=== PATIENT | female | born 1945 | race Caucasian/White ===

== ENCOUNTER → 2017-07-25 | Outpatient (CLI) | payer MEDICARE, BC ==
--- NOTE | 2017-07-25 11:44 | MM ---
Reason for exam: additional evaluation requested from prior study. Last mammogram was performed 1 year and 3 months ago. History: Patient is postmenopausal. Benign core biopsy of the right breast, 1999. Took hormonal contraceptives for 9 months beginning at age 21. Took estrogen for 1 year beginning at age 51. Physical Findings: Nurse did not find any significant physical abnormalities on exam. MG 3D Diag Mammo W/Cad YOSEF Bilateral CC and MLO view(s) were taken. Prior study comparison: April 20, 2016, bilateral MG 3d screening mammo w/cad. April 14, 2015, bilateral MG 3d diag mammo w/cad YOSEF. The breast tissue is heterogeneously dense. This may lower the sensitivity of mammography. There is chronic nodularity in the right lateral breast. No significant new findings when compared with previous films. These results were verbally communicated with the patient and result sheet given to the patient on 07/25/17. ASSESSMENT: Negative, BI-RAD 1 RECOMMENDATION: Routine screening mammogram of both breasts in 1 year.
== END | disposition home or self-care (01) ==
LOC: RADMAMWWP 10:29
PROVIDERS: ATTEND Family Medicine
DX: R92.8 Other abnormal and inconclusive findings on diagnostic imaging of breast (principal)
CPT/HCPCS: 77066; G0279

== ENCOUNTER → 2017-11-20 | Outpatient (CLI) | payer MEDICARE, BC ==
--- NOTE | 2017-11-21 19:44 | EEG ---
ELECTROENCEPHALOGRAM REPORT DATE OF EE11/20/2017 This is an outpatient EEG. ELECTROENCEPHALOGRAPHIC EXAMINATION REPORT: INDICATION FOR EXAMINATION: This patient is a 71-year-old female being evaluated for 2 episodes of falling without loss of consciousness. Patient has drop attacks and falls down without seizure activity AGE: [age]. EEG FINDINGS: A routine 21-channel awake digital EEG recording was accomplished utilizing the 10-20 international system with bipolar and referential montages. The background activity in the most alert resting state consists of a low to medium amplitude, fairly well developed well sustained 7-8 Hz activity over the posterior head regions. This posterior rhythm attenuates to eye opening. There is a small amount of low amplitude 18-20 Hz beta activity seen maximally over the anterior head regions. Muscle and movement artifact was observed on a few occasions during the tracing. Hyperventilation was not performed. Photic stimulation at flash frequencies of 2-30 Hz produced a good symmetrical occipital driving response. No epileptiform discharges were seen. IMPRESSION: This EEG is within normal limits for the patient's age. The EEG failed to reveal any focal, lateralized, or epileptiform abnormalities. Clinical correlation is recommended. MMODL / IJN: [id number] /
== END | disposition home or self-care (01) ==
LOC: NEUROMAIN 12:54
PROVIDERS: ATTEND Family Medicine
DX: R55 Syncope and collapse (principal)
CPT/HCPCS: 95816

== ENCOUNTER → 2018-09-24 | Outpatient (CLI) | payer MEDICARE, BC ==
--- NOTE | 2018-09-25 09:43 | MM ---
Reason for exam: screening (asymptomatic). Last mammogram was performed 1 year and 2 months ago. History: Patient is postmenopausal. Benign core biopsy of the right breast, 1999. Took hormonal contraceptives for 9 months beginning at age 21. Took estrogen for 1 year beginning at age 51. Physical Findings: A clinical breast exam by your physician is recommended on an annual basis and results should be correlated with mammographic findings. MG 3D Screening Mammo W/Cad Bilateral CC and MLO view(s) were taken. Prior study comparison: July 25, 2017, bilateral MG 3d diag mammo w/cad YOSEF. April 20, 2016, bilateral MG 3d screening mammo w/cad. The breast tissue is heterogeneously dense. This may lower the sensitivity of mammography. Finding: There are typically benign vascular, dystrophic, round calcifications in both breasts. Previous mammotome biopsy in the right breast. There is no discrete abnormality. ASSESSMENT: Benign, BI-RAD 2 RECOMMENDATION: Routine screening mammogram of both breasts in 1 year.
== END | disposition home or self-care (01) ==
LOC: RADMAMWWP 16:26
PROVIDERS: ATTEND Family Medicine
DX: Z12.31 Encounter for screening mammogram for malignant neoplasm of breast (principal)
CPT/HCPCS: 77063; 77067

== ENCOUNTER → 2018-10-14 | Outpatient (CLI) | payer MEDICARE, BC ==
--- NOTE | 2018-10-14 12:42 | US ---
EXAMINATION TYPE: US venous doppler duplex LE LT DATE OF EXAM: 10/14/2018 12:25 PM COMPARISON: NONE CLINICAL HISTORY: R22.42 Swelling Of Left Lower Limb. Left knee replacement x 10 weeks ago. Pain and swelling that comes and goes. Not on blood thinners. SIDE PERFORMED: Left TECHNIQUE: The lower extremity deep venous system is examined utilizing real time linear array sonog paulina with graded compression, doppler sonography and color-flow sonography. VESSELS IMAGED: External Iliac Vein (EIV) Common Femoral Vein Deep Femoral Vein Greater Saphenous Vein * Femoral Vein Popliteal Vein Small Saphenous Vein * Proximal Calf Veins (* superficial vessels) Left Leg: Negative for DVT IMPRESSION: 1. No diagnostic evidence of DVT as visualized.
== END | disposition home or self-care (01) ==
LOC: RADUSWWP 12:03
PROVIDERS: ATTEND Family Medicine
DX: R22.42 Localized swelling, mass and lump, left lower limb (principal)

== ENCOUNTER 2019-02-10 18:38 | Observation (INO) | payer BC, MEDICARE ==
[2019-02-10] MEDS ORDERED: ASPIRIN 81 MG PO STA (20:22)
[2019-02-10] MEDS ORDERED: NITROGLYCERIN OINT 1 INCH/GM PACKET TOPICAL STA (20:22)
--- NOTE | 2019-02-10 20:30 | ED ---
General Adult HPI - General Chief complaint: Chest Pain Stated complaint: chest pain Time Seen by Provider: 02/10/19 18:55 Source: patient, RN notes reviewed Mode of arrival: wheelchair Limitations: no limitations - History of Present Illness Initial comments: This is a 73-year-old female presents emergency Department with a past medical history significant for family history of heart disease. Patient comes in complaining of chest pain radiates up into her shoulder. Patient states it started 3 hours prior to arrival. Patient denies any shortness of breath or diaphoretic episodes. Patient denies any nausea. Patient denies any recent fever chills or cough. Patient states she has no diabetes high blood pressure or high cholesterol. Patient denies any abdominal pain patient nausea vomiting or diarrhea. Patient states the pain is still in the shoulder and only minimally so in the chest. Patient denies any leg swelling or calf tremors. - Related Data Home Medications Medication Instructions Recorded Confirmed Montelukast [Singulair] 10 mg PO DAILY 11/13/13 02/10/19 Rosuvastatin Calcium [Crestor] 20 mg PO HS 11/13/13 02/10/19 Cyanocobalamin [Vitamin B-12] 1,000 mcg PO DAILY 02/10/19 02/10/19 Famotidine [Pepcid] 40 mg PO DAILY 02/10/19 02/10/19 Hydrochlorothiazide [Hydrodiuril] 25 mg PO DAILY 02/10/19 02/10/19 Losartan Potassium 100 mg PO DAILY 02/10/19 02/10/19 Allergies Allergy/AdvReac Type Severity Reaction Status Date / Time Penicillins Allergy reddened Verified 02/10/19 20:02 skin @site AND SWELLING sulfamethoxazole Allergy TURNS Verified 02/10/19 20:02 [From Bactrim] RED(FLUSHED) trimethoprim [From Bactrim] Allergy TURNS Verified 02/10/19 20:02 RED(FLUSHED) adhesive AdvReac blisters Verified 02/10/19 20:02 Review of Systems ROS Statement: Those systems with pertinent positive or pertinent negative responses have been documented in the HPI. ROS Other: All systems not noted in ROS Statement are negative. Past Medical History Past Medical History: Asthma, GERD/Reflux, Hyperlipidemia, Hypertension, Musculoskeletal Disorder, Osteoarthritis (OA) Additional Past Medical History / Comment(s): HX. HEART MURMUR, STEROID WITHIN 3MOS, RT SHOULDER INJURY History of Any Multi-Drug Resistant Organisms: None Reported Past Surgical History: Back Surgery, Section, Heart Catheterization, Hysterectomy, Orthopedic Surgery, Tonsillectomy Additional Past Surgical History / Comment(s): X3, D&C'S,2013 RT KNEE REPLACEMENT, HEART CATH 1996 Past Anesthesia/Blood Transfusion Reactions: Postoperative Nausea & Vomiting (PONV) Additional Past Anesthesia/Blood Transfusion Reaction / Comment(s): FATHER HAD TROUBLE WAKING UP FROM ANESTHESIA Past Psychological History: Depression Smoking Status: Never smoker Past Alcohol Use History: None Reported Past Drug Use History: None Reported - Past Family History Father Additional Family Medical History / Comment(s): HEART PROBLEMS Mother Additional Family Medical History / Comment(s): HEART PROBLEMS Brother(s) Additional Family Medical History / Comment(s): HEART PROBLEMS General Exam - General Exam Comments Initial Comments: GENERAL: Patient is well-developed and well-nourished. Patient is nontoxic and well- hydrated and is in mild distress. ENT: Neck is soft and supple. No significant lymphadenopathy is noted. Oropharynx is clear. Moist mucous membranes. Neck has full range of motion without eliciting any pain. EYES: The sclera were anicteric and conjunctiva were pink and moist. Extraocular movements were intact and pupils were equal round and reactive to light. Eyelids were unremarkable. PULMONARY: Unlabored respirations. Good breath sounds bilaterally. No audible rales rhon chi or wheezing was noted. CARDIOVASCULAR: There is a regular rate and rhythm without any murmurs gallops or rubs. ABDOMEN: Soft and nontender with normal bowel sounds. SKIN: Skin is clear with no lesions or rashes and otherwise unremarkable. NEUROLOGIC: Patient is alert and oriented x3. Cranial nerves II through XII are grossly intact. Motor and sensory are also intact. Normal speech, volume and content. Symmetrical smile. MUSCULOSKELETAL: Normal extremities with adequate strength and full range of motion. No lower extremity swelling or edema. No calf tenderness. LYMPHATICS: No significant lymphadenopathy is noted PSYCHIATRIC: Normal psychiatric evaluation. Limitations: no limitations Course Vital Signs 02/10/19 18:48 Temperature 97.8 F Pulse Rate 57 L Respiratory 18 Rate Blood Pressure 211/95 O2 Sat by Pulse 100 Oximetry Medical Decision Making - Medical Decision Making EKG shows sinus bradycardia 56 bpm WA interval 164 QRS 80 QT interval 390 QTC is 384 per patient's EKG shows no ST segment elevation or depression or T wave abnormalities are noted. There Patient chest x-ray showed no acute abnormalities. Because the patient's symptoms and significant family history I consider the patient unstable angina and I started the patient on heparin. I spoke with Dr. Angulo he agreed to admit the patient admitted the patient I wrote admitting orders I continued heparin and aspirin and Nitropaste on the floor I also c onsult cardiology. - Lab Data Result diagrams: 02/10/19 20:20 02/10/19 20:20 Lab Results 02/10/19 02/10/19 02/10/19 Range/Units 20:20 20:20 20:20 WBC 5.7 (3.8-10.6) k/uL RBC 4.62 (3.80-5.40) m/uL Hgb 13.5 (11.4-16.0) gm/dL Hct 38.2 (34.0-46.0) % MCV 82.5 (80.0-100.0) fL MCH 29.3 (25.0-35.0) pg MCHC 35.5 (31.0-37.0) g/dL RDW 12.6 (11.5-15.5) % Plt Count 270 (150-450) k/uL Neutrophils % 63 % Lymphocytes % 26 % Monocytes % 7 % Eosinophils % 2 % Basophils % 0 % Neutrophils # 3.6 (1.3-7.7) k/uL Lymphocytes # 1.5 (1.0-4.8) k/uL Monocytes # 0.4 (0-1.0) k/uL Eosinophils # 0.1 (0-0.7) k/uL Basophils # 0.0 (0-0.2) k/uL PT 10.4 (9.0-12.0) sec INR 1.0 (<1.2) APTT 25.5 (22.0-30.0) sec Sodium 138 (137-145) mmol/L Potassium 3.4 L (3.5-5.1) mmol/L Chloride 99 (98-107) mmol/L Carbon Dioxide 29 (22-30) mmol/L Anion Gap 10 mmol/L BUN 10 (7-17) mg/dL Creatinine 0.60 (0.52-1.04) mg/dL Est GFR (CKD-EPI)AfAm >90 (>60 ml/min/1.73 sqM) Est GFR (CKD-EPI)NonAf >90 (>60 ml/min/1.73 sqM) Glucose 94 (74-99) mg/dL Calcium 9.8 (8.4-10.2) mg/dL Magnesium 1.7 (1.6-2.3) mg/dL Total Bilirubin 0.5 (0.2-1.3) mg/dL AST 36 (14-36) U/L ALT 39 (9-52) U/L Alkaline Phosphatase 54 (38-126) U/L Troponin I (0.000-0.034) ng/mL Total Protein 6.3 (6.3-8.2) g/dL Albumin 3.9 (3.5-5.0) g/dL 02/10/19 Range/Units 20:20 WBC (3.8-10.6) k/uL RBC (3.80-5.40) m/uL Hgb (11.4-16.0) gm/dL Hct (34.0-46.0) % MCV (80.0-100.0) fL MCH (25.0-35.0) pg MCHC (31.0-37.0) g/dL RDW (11.5-15.5) % Plt Count (150-450) k/uL Neutrophils % % Lymphocytes % % Monocytes % % Eosinophils % % Basophils % % Neutrophils # (1.3-7.7) k/uL Lymphocytes # (1.0-4.8) k/uL Monocytes # (0-1.0) k/uL Eosinophils # (0-0.7) k/uL Basophils # (0-0.2) k/uL PT (9.0-12.0) sec INR (<1.2) APTT (22.0-30.0) sec Sodium (137-145) mmol/L Potassium (3.5-5.1) mmol/L Chloride (98-107) mmol/L Carbon Dioxide (22-30) mmol/L Anion Gap mmol/L BUN (7-17) mg/dL Creatinine (0.52-1.04) mg/dL Est GFR (CKD-EPI)AfAm (>60 ml/min/1.73 sqM) Est GFR (CKD-EPI)NonAf (>60 ml/min/1.73 sqM) Glucose (74-99) mg/dL Calcium (8.4-10.2) mg/dL Magnesium (1.6-2.3) mg/dL Total Bilirubin (0.2-1.3) mg/dL AST (14-36) U/L ALT (9-52) U/L Alkaline Phosphatase (38-126) U/L Troponin I <0.012 (0.000-0.034) ng/mL Total Protein (6.3-8.2) g/dL Albumin (3.5-5.0) g/dL Critical Care Time Critical Care Time: Yes Total Critical Care Time: 35 Disposition Clinical Impression: Unstable angina pectoris Disposition: ADMITTED IP TO THIS HOSP Referrals: Tyson Escoto MD [Primary Care Provider] - 1-2 days Time of Disposition: 21:55
[2019-02-10 20:49] LABS: Basophils % (A) 0 %; Eosinophils # (A) 0.1 k/uL (0-0.7); Eosinophils % (A) 2 %; HCT 38.2 % (34.0-46.0); HGB 13.5 gm/dL (11.4-16.0); Lymphocytes # (A) 1.5 k/uL (1.0-4.8); Lymphocytes % (A) 26 %; MCH 29.3 pg (25.0-35.0); MCHC 35.5 g/dL (31.0-37.0); MCV 82.5 fL (80.0-100.0); Mean Platelet Volume 6.3; Monocytes # (A) 0.4 k/uL (0-1.0); Monocytes % (A) 7 %; Neutrophils # (A) 3.6 k/uL (1.3-7.7); Neutrophils % (A) 63 %; Platelet Count 270 k/uL (150-450); RBC 4.62 m/uL (3.80-5.40); RDW 12.6 % (11.5-15.5); WBC 5.7 k/uL (3.8-10.6)
[2019-02-10 20:52] LABS: ALT 39 U/L (9-52); AST 36 U/L (14-36); African American GFR (CKD) >90 (>60 ml/min/1.73 sqM); Albumin 3.9 g/dL (3.5-5.0); Alkaline Phosphatase 54 U/L (38-126); Anion Gap 10 mmol/L; Blood Urea Nitrogen 10 mg/dL (7-17); Calcium 9.8 mg/dL (8.4-10.2); Carbon Dioxide 29 mmol/L (22-30); Chloride 99 mmol/L (98-107); Glucose 94 mg/dL (74-99); Magnesium 1.7 mg/dL (1.6-2.3); Potassium 3.4 mmol/L (3.5-5.1); Sodium 138 mmol/L (137-145); Total Bilirubin 0.5 mg/dL (0.2-1.3); Total Protein 6.3 g/dL (6.3-8.2)
[2019-02-10 20:54] LABS: Partial Thromboplastin Time 25.5 sec (22.0-30.0); Prothrombin Time 10.4 sec (9.0-12.0)
--- NOTE | 2019-02-10 21:15 | XR ---
EXAMINATION TYPE: XR chest 2V DATE OF EXAM: 02/10/2019 COMPARISON: 04/21/2014 HISTORY: Chest pain TECHNIQUE: Frontal and lateral views of the chest are obtained. FINDINGS: Heart and mediastinum are normal. Lungs are clear. Diaphragm is normal. Bony thorax is int act. There are chest leads. IMPRESSION: Normal chest. No change.
[2019-02-10] MEDS ORDERED: HEPARIN SODIUM,PORCINE 5,000 UNIT/ML 1 ML VIAL IV ONE (21:48)
[2019-02-10] MEDS ORDERED: LABETALOL 5 MG/ML VIAL MDV IVP STA (21:56)
[2019-02-10] MEDS ORDERED: NITROGLYCERIN SL TABS 0.4 MG TAB SUBLINGUAL PRN (21:57)
[2019-02-10] MEDS ORDERED: HEPARIN SOD,PORK IN 0.45% NACL 25,000 UNIT in 0.45% NACL 1 250ML.BAG IV SCH (22:00)
[2019-02-11] MEDS: NITROGLYCERIN OINT 1 INCH/GM PACKET TOPICAL SCH ×2 (01:44→05:32)
[2019-02-11 06:19] LABS: Cholesterol 137 mg/dL (<200); HDL Cholesterol 61 mg/dL (40-60); LDL Cholesterol,Calculated 62 mg/dL (0-99); Triglycerides 69 mg/dL (<150)
[2019-02-11 07:53] VITALS: RESP 18
[2019-02-11] MEDS ORDERED: HYDROCHLOROTHIAZIDE 25 MG TAB PO SCH (09:00)
[2019-02-11] MEDS ORDERED: ASPIRIN 325 MG TAB PO SCH (09:00)
[2019-02-11] MEDS ORDERED: LOSARTAN 50 MG TAB PO SCH (09:00)
--- NOTE | 2019-02-11 10:24 | P.CRDCN ---
History of Present Illness History of present illness: This is a pleasant 73-year-old female past medical history significant for hypertension, dyslipidemia and gastroesophageal reflux disease. She underwent cardiac catheterization in 2013 revealing a nonobstructive approximately 35-40% in the LAD. She follows in the office with Dr. North. We have been asked to see her in consultation secondary to chest discomfort. She states yesterday while doing some routine activities around her home she started feeling sharp pain that would start in the left mid scapular region and comes straight through to the left precordial region. Each pain was brief and felt like a short burst of discomfort. There is no specific aggravating or alleviating factor. This was not associated with shortness of breath, palpitations, dizziness, nausea, vomiting or diaphoresis. Her symptoms persisted for most of the evening and slowly started subside with no specific alleviating factor. She is seen and examined resting comfortably in no acute d istress. She denies any further symptoms of chest discomfort. Upon arrival to the emergency department blood pressure was 211/95. The patient states she had not taken her daily antihypertensives yesterday. EKG reveals sinus bradycardia heart rate of 56, left axis deviation, nonspecific abnormalities and poor R-wave progression. Chest x-ray is negative for an acute cardiopulmonary process. Laboratory data reviewed, WBC 5.7, hemoglobin 13.5, platelets 270, sodium 138, potassium 3.4, creatinine 0.6, magnesium 1.7, cardiac enzymes negative 3, LDL 62. Current daily cardiac medications include hydrochlorothiazide 25 mg daily, losartan 100 mg daily rosuvastatin 20 mg daily. Most recent echocardiogram obtained in the office June 2017 reveals preserved LV systolic function with ejection fraction 55%, mild concentric hypertrophy, normal diastolic function and no wall motion abnormality. She has a moderately calcified aortic valve with mild aortic regurgitation, mild aortic stenosis with a valve area of 2.47 cm and a mean gradient across the valve of 11 mmHg. Most recent stress test performed in the office June 2017 with a Cardiolite stress test that revealed fair exercise capacity with inconclusive stress test by EKG criteria and a normal myocardial perfusion scan. At the time of my exam: CONSTITUTIONAL: Denies fever. Denies chills. EYES: Denies blurred vision. Denies vision changes. Denies eye pain. EARS, NOSE, MOUTH & THROAT: Denies headache. Denies sore throat. Denies ear pain. CARDIOVASCULAR: Denies chest pain. Denies shortness of breath. Denies orthopnea. Denies PND. Denies palpitations. RESPIRATORY: Denies cough. GASTROINTESTINAL: Denies abdominal pain. Denies diarrhea. Denies constipation. Denies nausea. Denies vomiting. MUSCULOSKELETAL: Denies myalgias. INTEGUMENTARY: Denies pruitis. Denies rash. NEUROLOGIC: Denies numbness. Denies tingling. Denies weakness. PSYCHIATRIC: Denies anxiety. Denies depression. ENDOCRINE: Denies fatigue. Denies weight change. Denies polydipsia. Denies polyurina. GENITOURINARY: Denies burning, hematuria or urgency with micturation. HEMATOLOGIC: Denies history of anemia. Denies bleeding. Blood pressure 146/64 heart rate 58 afebrile maintaining oxygen saturation on room air GENERAL: This is a 73-year-old female in no apparent distress at the time of my examination. HEENT: Head is atraumatic, normocephalic. Pupils are equal, round. Sclerae anicteric. Conjunctivae are clear. Mucous membranes of the mouth are moist. Neck is supple. There is no jugular venous distention. No carotid bruit is heard. LUNGS: Clear to auscultation no wheezes, rales or rhonchi. No chest wall tenderness is noted on palpation or with deep breathing. HEART: Regular rate and rhythm with systolic ejection murmur at the base and le ft sternal border, no rubs or gallops. S1 and S2 heard. ABDOMEN: Soft, nontender. Bowel sounds are heard. No organomegaly noted. EXTREMITIES: No evidence of peripheral edema and no calf tenderness noted. VASCULAR: Radial and dorsalis pedis pulses palpated, no evidence of clubbing. NEUROLOGIC: Patient is awake, alert and oriented x3. ASSESSMENT Chest pain, atypical. Acute coronary event has been ruled out Hypertension Dyslipidemia Mild nonobstructive coronary artery disease Aortic stenosis, moderate PLAN An acute coronary event has been ruled out. Obtain 2-D echocardiogram and Doppler study to assess cardiac structure and function. Perform stress test to assess for stress-induced ischemia. Resume hydrochlorothiazide, losartan and rosuvastatin as previously ordered. Compliance with anti-hypertensive regimen discussed. Thank you kindly for this consultation. Nurse Practitioner note has been reviewed, I agree with a documented findings and plan of care. Patient was seen and examined. Past Medical History Past Medical History: Asthma, GERD/Reflux, Hyperlipidemia, Hypertension, Musculoskeletal Disorder, Osteoarthritis (OA) Additional Past Medical History / Comment(s): HX. HEART MURMUR, STEROID WITHIN 3MOS, RT SHOULDER INJURY History of Any Multi-Drug Resistant Organisms: None Reported Past Surgical History: Back Surgery, Section, Heart Catheterization, Hysterectomy, Orthopedic Surgery, Tonsillectomy Additional Past Surgical History / Comment(s): X3, D&C'S,2012 RT KNEE REPLACEMENT, HEART CATH 1996 Past Anesthesia/Blood Transfusion Reactions: Postoperative Nausea & Vomiting (PONV) Additional Past Anesthesia/Blood Transfusion Reaction / Comment(s): FATHER HAD TROUBLE WAKING UP FROM ANESTHESIA Past Psychological History: Depression Smoking Status: Never smoker Past Alcohol Use History: None Reported Past Drug Use History: None Reported - Past Family History Father Additional Family Medical History / Comment(s): HEART PROBLEMS Mother Additional Family Medical History / Comment(s): HEART PROBLEMS Brother(s) Additional Family Medical History / Comment(s): HEART PROBLEMS Medications and Allergies Home Medications Medication Instructions Recorded Confirmed Type Montelukast [Singulair] 10 mg PO DAILY 11/13/13 02/10/19 History Rosuvastatin Calcium [Crestor] 20 mg PO HS 11/13/13 02/10/19 History Cyanocobalamin [Vitamin B-12] 1,000 mcg PO DAILY 02/10/19 02/10/19 History Famotidine [Pepcid] 40 mg PO DAILY 02/10/19 02/10/19 History Hydrochlorothiazide [Hydrodiuril] 25 mg PO DAILY 02/10/19 02/10/19 History Losartan Potassium 100 mg PO DAILY 02/10/19 02/10/19 History Allergies Allergy/AdvReac Type Severity Reaction Status Date / Time Penicillins Allergy reddened Verified 02/10/19 20:02 skin @site AND SWELLING sulfamethoxazole Allergy TURNS Verified 02/10/19 20:02 [From Bactrim] RED(FLUSHED) trimethoprim [From Bactrim] Allergy TURNS Verified 02/10/19 20:02 RED(FLUSHED) adhesive AdvReac blisters Verified 02/10/19 20:02 Physical Exam Vitals: Vital Signs Temp Pulse Pulse Resp BP BP Pulse Ox 02/11/19 07:40 98.1 F 58 L 18 146/64 97 02/11/19 05:39 16 02/11/19 04:01 97.7 F 55 L 18 145/71 98 02/11/19 04:00 17 L 02/11/19 00:00 17 02/10/19 23:44 98 F 57 L 18 133/70 97 02/10/19 22:00 55 L 16 170/79 02/10/19 20:30 57 L 16 190/91 02/10/19 18:48 97.8 F 57 L 18 211/95 100 Intake and Output 02/10/19 02/11/19 02/11/19 22:59 06:59 14:59 Intake Total 0 100 Output Total 300 Balance 0 -200 Intake: Amount of Fluid Infused ( 100 ml) Oral 0 0 Output: Urine 300 Other: Voiding Method Toilet Weight 81.647 kg Results 02/10/19 20:20 02/10/19 20:20 Cardiac Enzymes 02/10/19 02/10/19 02/11/19 Range/Units 20:20 20:20 02:03 AST 36 (14-36) U/L Troponin I <0.012 <0.012 (0.000-0.034) ng/mL 02/11/19 Range/Units 05:19 AST (14-36) U/L Troponin I <0.012 (0.000-0.034) ng/mL Coagulation 02/10/19 02/11/19 Range/Units 20:20 05:19 PT 10.4 (9.0-12.0) sec APTT 25.5 103.8 H* (22.0-30.0) sec Lipids 02/11/19 Range/Units 05:19 Triglycerides 69 (<150) mg/dL Cholesterol 137 (<200) mg/dL HDL Cholesterol 61 H (40-60) mg/dL CBC 02/10/19 Range/Units 20:20 WBC 5.7 (3.8-10.6) k/uL RBC 4.62 (3.80-5.40) m/uL Hgb 13.5 (11.4-16.0) gm/dL Hct 38.2 (34.0-46.0) % Plt Count 270 (150-450) k/uL Comprehensive Metabolic Panel 02/10/19 Range/Units 20:20 Sodium 138 (137-145) mmol/L Potassium 3.4 L (3.5-5.1) mmol/L Chloride 99 (98-107) mmol/L Carbon Dioxide 29 (22-30) mmol/L BUN 10 (7-17) mg/dL Creatinine 0.60 (0.52-1.04) mg/dL Glucose 94 (74-99) mg/dL Calcium 9.8 (8.4-10.2) mg/dL AST 36 (14-36) U/L ALT 39 (9-52) U/L Alkaline Phosphatase 54 (38-126) U/L Total Protein 6.3 (6.3-8.2) g/dL Albumin 3.9 (3.5-5.0) g/dL Current Medications Generic Name Dose Route Start Last Admin Trade Name Freq PRN Reason Stop Dose Admin Aspirin 81 mg 02/12/19 09:00 Aspirin PO DAILY [facility] Atorvastatin Calcium 40 mg 02/11/19 21:00 Lipitor PO HS [facility] Hydrochlorothiazide 25 mg 02/11/19 09:00 Hydrodiuril PO DAILY [facility] Losartan Potassium 100 mg 02/11/19 09:00 Cozaar PO DAILY [facility] Nitroglycerin 0.4 mg 02/10/19 21:57 Nitrostat SUBLINGUAL Q5M PRN Chest Pain Intake and Output 02/10/19 02/11/19 02/11/19 22:59 06:59 14:59 Intake Total 0 100 Output Total 300 Balance 0 -200 Intake: Amount of Fluid Infused ( 100 ml) Oral 0 0 Output: Urine 300 Other: Voiding Method Toilet Weight 81.647 kg 02/10/19 20:20 02/10/19 20:20
[2019-02-11 11:34] VITALS: BP 141/93; PULSE 67; TEMP 97.9
--- NOTE | 2019-02-11 12:01 | ECHOF ---
Referral Reason:cp MEASUREMENTS -------- HEIGHT: 157.5 cm WEIGHT: 81.6 kg BP: 146/64 RVIDd: 3.1 cm (< 3.3) IVSd: 1.3 cm (0.6 - 1.1) LVIDd: 3.7 cm (3.9 - 5.3) LVPWd: 1.3 cm (0.6 - 1.1) IVSs: 1.5 cm LVIDs: 2.3 cm LVPWs: 1.6 cm LA Diam: 3.0 cm (2.7 - 3.8) LAESV Index (A-L): 15.90 ml/m Ao Diam: 3.6 cm (2.0 - 3.7) AV Cusp: 1.8 cm (1.5 - 2.6) MV EXCURSION: 9.414 mm (> 18.000) MV EF SLOPE: 43 mm/s (70 - 150) EPSS: 0.8 cm MV E Eliazar: 0.91 m/s MV DecT: 263 ms MV A Eliazar: 0.91 m/s MV E/A Ratio: 1.01 AV maxP.86 mmHg AV meanP.45 mmHg AR PHT: 820 ms RAP: 5.00 mmHg RVSP: 32.77 mmHg TAPSE: 22.21 mm FINDINGS -------- Sinus rhythm. This was a technically adequate study. The left ventricular size is normal. There is mild concentric left ventricular hypertrophy. Overa ll left ventricular systolic function is normal with, an EF between 60 - 65 %. The diastolic fillin g pattern is normal for the age of the patient 10.59. The right ventricle is normal in size. Normal LA size by volume 22+/-6 ml/m2. The right atrium is normal in size. Interatrial and interventricular septum intact. There is mild to moderate aortic valve sclerosis. There is mild aortic regurgitation. There is mi ld aortic stenosis present. Peak/mean gradient across the Aortic Valve is 24.86mmHg / 12.45mmHg. The mitral valve leaflets are mildly thickened. Mild mitral annular calcification present. Mild tricuspid regurgitation present. Right ventricular systolic pressure is normal at < 35 mmHg. The pulmonic valve was not well visualized. The aortic root size is normal. Normal inferior vena cava with normal inspiratory collapse consistent with estimated right atrial pre ssure of 5 mmHg. There is no pericardial effusion. CONCLUSIONS -------- 1. Sinus rhythm. 2. This was a technically adequate study. 3. The left ventricular size is normal. 4. There is mild concentric left ventricular hypertrophy. 5. Overall left ventricular systolic function is normal with, an EF between 60 - 65 %. 6. The diastolic filling pattern is normal for the age of the patient 10.59 7. The right ventricle is normal in size. 8. Normal LA size by volume 22+/-6 ml/m2. 9. The right atrium is normal in size. 10. Interatrial and interventricular septum intact. 11. There is mild to moderate aortic valve sclerosis. 12. There is mild aortic regurgitation. 13. There is mild aortic stenosis present. 14. Peak/mean gradient across the Aortic Valve is 24.86mmHg / 12.45mmHg. 15. The mitral valve leaflets are mildly thickened. 16. Mild mitral annular calcification present. 17. Mild tricuspid regurgitation present. 18. Right ventricular systolic pressure is normal at < 35 mmHg. 19. The pulmonic valve was not well visualized. 20. The aortic root size is normal. 21. Normal inferior vena cava with normal inspiratory collapse consistent with estimated right atrial pressure of 5 mmHg. 22. There is no pericardial effusion. RRT: Pennie Elizabeth RDCS
[2019-02-11] MEDS ORDERED: ATORVASTATIN 40 MG TAB PO SCH (21:00)
--- NOTE | 2019-02-11 23:17 | P.HPIM ---
History of Present Illness H&P Date: 02/11/19 Chief Complaint: chest pain history of presenting complaint: This is a very pleasant [address] Alaniz. Chronicstable medical conditions include asthma, GERD, hypertension, hyperlipidemia, Shiela arthritis. 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 Then she developed 3 episodes of sharp chest pain in the left infraclavicular area. Pain also went down to the left arm. There is no shortness. No dizziness or lightheadedness. No cough or shortness of breath. She decided to drive down to her [id number] who is a nurse. He finally decided to come into the ER because of a strong family history. Did rule out a cardiac cause. Admitted for the same. Review of systems: GEN.: [None] EYES: [None] HEENT: [None] NECK: [None] RESPIRATORY: [None] CARDIOVASCULAR: [None] GASTROINTESTINAL: [refluxe] GENITOURINARY: [None] MUSCULOSKELETAL: joint pains LYMPHATICS: [None] HEMATOLOGICAL: [None] PSYCHIATRY: [None] NEUROLOGICAL: [None ] social history: Lives alone. Does not smoke. No alcohol. Family history: Cardiac disease Physical examination: VITAL SIGNS: [97.8, 57, 18, 211/95, repeat 133/70] GENERAL: [BMI 32.9, laying in bed, comfortablee]. EYES: [Pupils equal. Conjunctiva myah]l. HEENT: [External appearance of nose and ears normal, oral cavity grossly normal]. NECK: [JVD not raised; masses not palpable]. HEART: [First and second heart sounds are normal; no edema]. LUNGS:[ Respiratory rate normal; clear to auscultation]. ABDOMEN: [Soft, nontender, liver spleen not palpable, no masses palpable]. PSYCH: [Alert and oriented x3; mood and affect myah]l. NEUROLOGICAL: [Cranial nerves grossly intact; no facial asymmetry, power and sensation grossly intact]. LYMPHATICS: [No lymph nodes palpable in the axilla and neck] MUSCULOSKELETAL: Evidence of OA especially in the hands INVESTIGATIONS, reviewed in the clinical context: white count 5.7 hemoglobin 13.5 platelets 270 creatinine 0.6 Troponin 3 negative EKG tracing personally reviewed by me-Sinus bradycardia poor R-wave progression Chest x-ray film personally reviewed by me-Lungs clear Assessment: -Noncardiac sounding anterior chest wall pain in a patient whose cardiac risk factors include hypertension, hyperlipidemia and a strong family history -GERD -Intermittent asthma -Essential hypertension -hyperlipidemia -Primary osteoarthritis -Obesity BMI 32.9 Plan: Home medications resumed. Cardiology was consulted.stresses and a 2-D echo was ordered by cardiology. Past Medical History Past Medical History: Asthma, GERD/Reflux, Hyperlipidemia, Hypertension, Musc uloskeletal Disorder, Osteoarthritis (OA) Additional Past Medical History / Comment(s): HX. HEART MURMUR, STEROID WITHIN 3MOS, RT SHOULDER INJURY History of Any Multi-Drug Resistant Organisms: None Reported Past Surgical History: Back Surgery, Section, Heart Catheterization, Hysterectomy, Orthopedic Surgery, Tonsillectomy Additional Past Surgical History / Comment(s): X3, D&C'S,2012 RT KNEE REPLACEMENT, HEART CATH 1996 Past Anesthesia/Blood Transfusion Reactions: Postoperative Nausea & Vomiting (PONV) Additional Past Anesthesia/Blood Transfusion Reaction / Comment(s): FATHER HAD TROUBLE WAKING UP FROM ANESTHESIA Past Psychological History: Depression Smoking Status: Never smoker Past Alcohol Use History: None Reported Past Drug Use History: None Reported - Past Family History Father Additional Family Medical History / Comment(s): HEART PROBLEMS Mother Additional Family Medical History / Comment(s): HEART PROBLEMS Brother(s) Additional Family Medical History / Comment(s): HEART PROBLEMS Medications and Allergies Home Medications Medication Instructions Recorded Confirmed Type Montelukast [Singulair] 10 mg PO DAILY 11/13/13 02/10/19 History Rosuvastatin Calcium [Crestor] 20 mg PO HS 11/13/13 02/10/19 History Cyanocobalamin [Vitamin B-12] 1,000 mcg PO DAILY 02/10/19 02/10/19 History Famotidine [Pepcid] 40 mg PO DAILY 02/10/19 02/10/19 History Hydrochlorothiazide [Hydrodiuril] 25 mg PO DAILY 02/10/19 02/10/19 History Losartan Potassium 100 mg PO DAILY 02/10/19 02/10/19 History Aspirin 81 mg PO DAILY chew 02/11/19 Rx Allergies Allergy/AdvReac Type Severity Reaction Status Date / Time Penicillins Allergy reddened Verified 02/10/19 20:02 skin @site AND SWELLING sulfamethoxazole Allergy TURNS Verified 02/10/19 20:02 [From Bactrim] RED(FLUSHED) trimethoprim [From Bactrim] Allergy TURNS Verified 02/10/19 20:02 RED(FLUSHED) adhesive AdvReac blisters Verified 02/10/19 20:02 Physical Exam Vitals: Vital Signs Temp Pulse Pulse Resp BP BP Pulse Ox 02/11/19 07:40 98.1 F 58 L 18 146/64 97 02/11/19 05:39 16 02/11/19 04:01 97.7 F 55 L 18 145/71 98 02/11/19 04:00 17 L 02/11/19 00:00 17 02/10/19 23:44 98 F 57 L 18 133/70 97 02/10/19 22:00 55 L 16 170/79 02/10/19 20:30 57 L 16 190/91 02/10/19 18:48 97.8 F 57 L 18 211/95 100 Intake and Output 02/10/19 02/11/19 02/11/19 22:59 06:59 14:59 Intake Total 0 100 Output Total 300 Balance 0 -200 Intake: Amount of Fluid Infused ( 100 ml) Oral 0 0 Output: Urine 300 Other: Voiding Method Toilet Weight 81.647 kg Results CBC & Chem 7: 02/10/19 20:20 02/10/19 20:20 Labs: Abnormal Lab Results - Last 24 Hours (Table) 02/10/19 02/11/19 02/11/19 Range/Units 20:20 05:19 05:19 APTT 103.8 H* (22.0-30.0) sec Potassium 3.4 L (3.5-5.1) mmol/L HDL Cholesterol 61 H (40-60) mg/dL Thrombosis Risk Factor Assmnt - Choose All That Apply Each Risk Factor Represents 2 Points: Age 61-74 years Thrombosis Risk Factor Assessment Total Risk Factor Score: 2 Thrombosis Risk Factor Assessment Level: Low Risk
--- NOTE | 2019-02-11 23:20 | P.DS ---
Providers Date of admission: 02/10/19 21:57 Expected date of discharge: 02/11/19 Attending physician: Cruz Angulo Consults: 02/10/19 21:57 Consult Physician Urgent Consulting Provider: [facility] Consult Reason/Comments: Unstable angina Do you want consulting provider notified?: Yes Primary care physician: Tyson Escoto Hospital Course: Chief Complaint: chest pain Hospital course: This is a very pleasant [address] Alaniz. Chronicstable medical conditions include asthma, GERD, hypertension, hyperlipidemia, Shiela arthritis. 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 Then she developed 3 episodes of sharp chest pain in the left infraclavicular area. Pain also went down to the left arm. There is no shortness. No dizziness or lightheadedness. No cough or shortness of breath. She decided to drive down to her [id number] who is a nurse. He finally decided to come into the ER because of a strong family history. Did rule out a cardiac cause. Admitted for the same. troponin 3 were negative. Stress test was negative.2-D echo showed EF of 60-65%. Cleared by Dr. VC Liu to go home. Consultation: Dr. VC Liu from cardiology Physical examination: VITAL SIGNS: 97.9, 67, 18, 141/93, 96% room air GENERAL: [BMI 32.9, laying in bed, comfortablee]. EYES: [Pupils equal. Conjunctiva myah]l. HEENT: [External appearance of nose and ears normal, oral cavity grossly normal]. NECK: [JVD not raised; masses not palpable]. HEART: [First and second heart sounds are normal; no edema]. LUNGS:[ Respiratory rate normal; clear to auscultation]. ABDOMEN: [Soft, nontender, liver spleen not palpable, no masses palpable]. PSYCH: [Alert and oriented x3; mood and affect myah]l. MUSCULOSKELETAL: Evidence of OA especially in the hands INVESTIGATIONS, reviewed in the clinical context: white count 5.7 hemoglobin 13.5 platelets 270 creatinine 0.6 Troponin 3 negative EKG tracing personally reviewed by me-Sinus bradycardia poor R-wave progression Chest x-ray film personally reviewed by me-Lungs clear 2-D echo shows an EF of 60-65% Stress test reported to be negative per Dr. VC Liu discharge diagnosis: -Noncardiac sounding anterior chest wall pain in a patient whose cardiac risk factors include hypertension, hyperlipidemia and a strong family history. Likely musculoskeletal -GERD -Intermittent asthma -Essential hypertension -hyperlipidemia -Primary osteoarthritis -Obesity BMI 32.9 disposition: Home Patient Condition at Discharge: Stable Plan - Discharge Summary Discharge Rx Participant: No New Discharge Prescriptions: New Aspirin 81 mg PO DAILY chew Continue Montelukast [Singulair] 10 mg PO DAILY Rosuvastatin Calcium [Crestor] 20 mg PO HS Cyanocobalamin [Vitamin B-12] 1,000 mcg PO DAILY Losartan Potassium 100 mg PO DAILY Hydrochlorothiazide [Hydrodiuril] 25 mg PO DAILY Famotidine [Pepcid] 40 mg PO DAILY Discharge Medication List Montelukast [Singulair] 10 mg PO DAILY 11/13/13 [History] Rosuvastatin Calcium [Crestor] 20 mg PO HS 11/13/13 [History] Cyanocobalamin [Vitamin B-12] 1,000 mcg PO DAILY 02/10/19 [History] Famotidine [Pepcid] 40 mg PO DAILY 02/10/19 [History] Hydrochlorothiazide [Hydrodiuril] 25 mg PO DAILY 02/10/19 [History] Losartan Potassium 100 mg PO DAILY 02/10/19 [History] Aspirin 81 mg PO DAILY chew 02/11/19 [Rx] Follow up Appointment(s)/Referral(s): Ashish North MD [STAFF PHYSICIAN] - 2 Weeks ([facility] will call you with follow up appointment time and date.) Tyson Escoto MD [Primary Care Provider] - 3 Days Patient Instructions/Handouts: Angina (DC) Discharge Disposition: HOME SELF-CARE
[2019-02-12] MEDS ORDERED: ASPIRIN 81 MG PO SCH (09:00)
--- NOTE | 2019-02-12 16:33 | ECHOS ---
STRESS ECHOCARDIOGRAM DATE OF TESTIN02/11/2019 INDICATIONS: Chest pain. MEDICATIONS: BASELINE HEART RATE: 58 BASELINE BLOOD PRESSURE: 148/66 MAXIMUM HEART RATE: 143 MAXIMUM BLOOD PRESSURE: 162/78 85% MPHR: 126 100% MPHR: 148 METS: 7.1 MAXIMUM STAGE REACHED: 2 TOTAL EXERCISE TIME: 5:24 CLINICAL INFORMATION: Patient was exercised for a total period of 5 minutes and 30 seconds. Peak heart rate of 143 was achieved. Maximum blood pressure of 162/78 mmHg is noted. Resting EKG shows normal sinus rhythm with normal ND interval and QRS duration and normal ST-T waves. No ST-segment depression suggestive of ischemia is noted. No dysrhythmias are noted. Baseline echocardiographic images reveal normal left ventricular chamber size with normal left ventricular systolic function. In the immediate post-exercise period, normal increase in the wall thickness and contractility is noted. FINAL IMPRESSION: This stress echocardiographic study is negative for stress-induced ischemia. EKG portion of the stress test is not suggestive of ischemia. Patient's exercise tolerance is average. MMODL / IJN: [id number] /
== END 2019-02-11 15:35 | disposition home or self-care (01) ==
LOC: EC 18:38 → 1SOBS 21:57
PROVIDERS: ADMIT Hospitalist; ATTEND Hospitalist
DX: R07.89 Other chest pain (principal); I25.10 Atherosclerotic heart disease of native coronary artery without angina pectoris; I35.2 Nonrheumatic aortic (valve) stenosis with insufficiency; I10 Essential (primary) hypertension; J45.20 Mild intermittent asthma, uncomplicated; M19.91 Primary osteoarthritis, unspecified site; K21.9 Gastro-esophageal reflux disease without esophagitis; E78.5 Hyperlipidemia, unspecified; F32.9 Major depressive disorder, single episode, unspecified; R00.1 Bradycardia, unspecified; Z68.32 Body mass index [BMI] 32.0-32.9, adult; E66.9 Obesity, unspecified; Z79.899 Other long term (current) drug therapy; Z88.0 Allergy status to penicillin; Z88.1 Allergy status to other antibiotic agents; Z88.2 Allergy status to sulfonamides; Z91.048 Other nonmedicinal substance allergy status; Z87.828 Personal history of other (healed) physical injury and trauma; Z90.710 Acquired absence of both cervix and uterus; Z96.651 Presence of right artificial knee joint; Z82.49 Family history of ischemic heart disease and other diseases of the circulatory system
CPT/HCPCS: 96366 ×2; 96376; 96365; 96375; 99291; 36415; 93306; 85379; 80061; 80053; 83735; 84484 ×2; 85025; 85610; 85730 ×2; 71046; G0378 ×2; C8930; J1644 ×2; Q9950; 93351

== ENCOUNTER → 2019-12-25 | Outpatient (CLI) | payer MEDICARE ==
--- NOTE | 2019-12-25 13:06 | US ---
EXAMINATION TYPE: US carotid duplex BILAT DATE OF EXAM: 12/25/2019 COMPARISON: NONE CLINICAL HISTORY: R09.89 SYMPTOMS WITH CIRCULATORY AND RESPITORY SYSTEM. Bruit, frequent falls EXAM MEASUREMENTS: RIGHT: Peak Systolic Velocity (PSV) cm/sec ----- Right CCA: 75.4 ----- Right ICA: 72.1 ----- Right ECA: 100.7 ICA/CCA ratio: 1.0 RIGHT: End Diastole cm/sec ----- Right CCA: 11.7 ----- Right ICA: 13.8 ----- Right ECA: 9.5 LEFT: Peak Systolic Velocity (PSV) cm/sec ----- Left CCA: 72.1 ----- Left ICA: 76.5 ----- Left ECA: 86.4 ICA/CCA ratio: 1.1 LEFT: End Diastole cm/sec ----- Left CCA: 9.5 ----- Left ICA: 16.0 ----- Left ECA: 10.6 VERTEBRALS (direction of flow): Right Vertebral: Antegrade Left Vertebral: Antegrade Rhythm: Normal Mild to moderate plaque bilateral bifurcations. No evidence of increased velocities. IMPRESSION: 1. Mild to moderate plaque bilaterally with no significant hemodynamic stenosis. Criteria for Assigning % of Stenosis / Diameter reduction (Estimation based on the indirect measurements of the internal carotid artery velocities (ICA PSV). 1. Normal (no stenosis)=ICA PSV < 125 cm/s: ratio < 2.0: ICA EDV<40 cm/s. 2. Less than 50% stenosis=ICA PSV < 125 cm/s: ratio < 2.0: ICA EDV<40 cm/s. 3. 50 to 69% stenosis=ICA PSV of 125 to 230 cm/s: ration 2.0 ? 4.0: ICA EDV 40-100 cm/s. 4. Greater than 70% stenosis to near occlusion= ICA PSV > 230 cm/s: ratio > 4.0: ICA EDV > 100 cm/s. 5. Near occlusion= ICA PSV velocities may be low or undetectable: variable ratio and ICA EDV. 6. Total occlusion=unable to detect flow.
--- NOTE | 2019-12-29 08:28 | MM ---
Reason for exam: screening (asymptomatic). Last mammogram was performed 1 year and 3 months ago. History: Patient is postmenopausal. Benign core biopsy of the right breast, 1999. Took hormonal contraceptives for 9 months beginning at age 21. Took estrogen for 1 year beginning at age 51. Physical Findings: A clinical breast exam by your physician is recommended on an annual basis and results should be correlated with mammographic findings. MG 3D Screening Mammo W/Cad Bilateral CC and MLO view(s) were taken. Prior study comparison: September 24, 2018, bilateral MG 3d screening mammo w/cad. July 25, 2017, bilateral MG 3d diag mammo w/cad [facility]. The breast tissue is heterogeneously dense. This may lower the sensitivity of mammography. Benign appearing bilateral calcifications. No significant changes when compared with prior studies. ASSESSMENT: Benign, BI-RAD 2 RECOMMENDATION: Routine screening mammogram of both breasts in 1 year.
== END | disposition home or self-care (01) ==
LOC: RADUSWWP 12:25
PROVIDERS: ATTEND Family Medicine
DX: Z12.31 Encounter for screening mammogram for malignant neoplasm of breast (principal); I65.23 Occlusion and stenosis of bilateral carotid arteries
CPT/HCPCS: 77063; 77067; 93880